=== PATIENT | female | born 1970 | race Caucasian/White ===

== ENCOUNTER → 2016-11-26 | Outpatient (CLI) | payer BC, OTHER ==
--- NOTE | 2016-11-26 16:49 | US ---
EXAMINATION TYPE: US pelvic complete DATE OF EXAM: 11/26/2016 COMPARISON: NONE CLINICAL HISTORY: N92.6 Irregular Menstrual Cycle. Pt states recent abnormal menses, bleeding continu ously for 3 weeks TECHNIQUE: Transabdominal (TA) Date of LMP: 10/18/2016, bled for 3 weeks EXAM MEASUREMENTS: Uterus: 10.7 x 4.7 x 8.1 cm Endometrial Stripe: Right Horn= 1.2 cm, Left Horn= 1.7 cm Right Ovary: 2.6 x 1.3 x 2.2 cm Left Ovary: 4.2 x 3.3 x 2.7 cm 1. Uterus: Anteverted Heterogeneous with two probable fibroids posterior 1)= 1.0 x 1.2 x 1.0 cm 2) = 1.1 x 1.0 x 0.8 cm 2. Endometrium: Right Horn appeared wnl, Left Horn appeared abnormally thickened and heterogeneous 3. Right Ovary: wnl 4. Left Ovary: Probable hemorrhagic cyst= 2.4 x 2.0 x 1.8 cm 5. Bilateral Adnexa: wnl 6. Posterior cul-de-sac: wnl IMPRESSION: There is complex endometrial thickening. Follow-up is recommended. Endometrium measures u p to 3 cm. No definite solid adnexal mass seen.
== END | disposition home or self-care (01) ==
LOC: RADUSWWP 16:13
PROVIDERS: ATTEND Family Medicine
DX: N85.00 Endometrial hyperplasia, unspecified (principal)
CPT/HCPCS: 76856

== ENCOUNTER 2017-11-15 13:04 | Emergency (ER) | payer BC ==
[2017-11-15 13:15] VITALS: BP 119/77; PULSE 79; RESP 18; TEMP 98.3
[2017-11-15] MEDS ORDERED: IBUPROFEN 600 MG TAB PO STA (13:23)
--- NOTE | 2017-11-15 13:36 | ED ---
Extremity Problem HPI - General Chief complaint: Extremity Problem,Nontraumatic Stated complaint: lt leg swelling Time Seen by Provider: 11/15/17 13:18 Source: patient, RN notes reviewed Mode of arrival: ambulatory Limitations: no limitations - History of Present Illness Initial comments: 47-year-old female presents emergency Department chief complaint of left leg pain, swelling. Patient states that she noted has some pain last week and was told that is most likely sciatica and was given steroids. She states she woke up this morning felt okay but throughout the day she's having worsening pain states that her leg is very firm to the touch and, swollen. She states it looks slightly discolored. She denies any history DVT, PE or any known vascular disease. Patient denies chest pain, shortness breath. She states her leg feels slightly tingly. - Related Data Previous Rx's Medication Instructions Recorded Apixaban [Eliquis] 0 mg PO DIRECTED #74 tablet 11/15/17 Allergies Allergy/AdvReac Type Severity Reaction Status Date / Time No Known Allergies Allergy Verified 11/15/17 13:26 Review of Systems ROS Statement: Those systems with pertinent positive or pertinent negative responses have been documented in the HPI. ROS Other: All systems not noted in ROS Statement are negative. Past Medical History Past Medical History: No Reported History History of Any Multi-Drug Resistant Organisms: None Reported Additional Past Surgical History / Comment(s): lasik eye surgery Past Psychological History: No Psychological Hx Reported Smoking Status: Never smoker Past Alcohol Use History: Occasional Past Drug Use History: None Reported General Exam Limitations: no limitations General appearance: alert, in no apparent distress Head exam: Present: atraumatic, normocephalic, normal inspection Neck exam: Present: normal inspection. Absent: tenderness, meningismus, lymphadenopathy Respiratory exam: Present: normal lung sounds bilaterally. Absent: respiratory distress, wheezes, rales, rhonchi, stridor Cardiovascular Exam: Present: regular rate, normal rhythm, normal heart sounds. Absent: systolic murmur, diastolic murmur, rubs, gallop, clicks Extremities exam: Present: other (Left leg is swollen, firm with palpation, tender with palpation pulses are equal bilaterally lower extremity patient has pain with range of motion of left lower extremity) Skin exam: Present: warm, dry, intact, normal color. Absent: rash Course Vital Signs 11/15/17 13:11 Temperature 98.3 F Pulse Rate 79 Respiratory 18 Rate Blood Pressure 119/77 O2 Sat by Pulse 98 Oximetry Medical Decision Making - Medical Decision Making 47-year-old female presented for left leg pain and swelling. She is found to have acute DVT. She was started on Eliquis in the emergency department. Patient denies chest pain or shortness of breath. I did expand the patient needs a follow-up with Dr. Naya Devries or Dr. Christie for workup for clotting disorders. Patient agrees this plan patient will follow-up PCP for recheck and continuation of medications. Disposition Clinical Impression: Acute deep vein thrombosis (DVT) of left lower extremity Disposition: HOME SELF-CARE Condition: Stable Instructions: Deep Vein Thrombosis (ED) Additional Instructions: Please return to the Emergency Department if symptoms worsen or any other concerns. Prescriptions: Apixaban [Eliquis] 0 mg PO DIRECTED #74 tablet Is patient prescribed a controlled substance at d/c from ED?: No Referrals: Helder Guzman DO [Primary Care Provider] - 1-2 days Michael Christie MD [STAFF PHYSICIAN] - 1-2 days Time of Disposition: 14:14
--- NOTE | 2017-11-15 13:55 | US ---
EXAMINATION TYPE: US venous doppler duplex LE LT DATE OF EXAM: 11/15/2017 1:24 PM COMPARISON: NONE CLINICAL HISTORY: 47-year-old female Pain. Swelling to left leg, no injury, tender to touch and canno t walk SIDE PERFORMED: left TECHNIQUE: The lower extremity deep venous system is examined utilizing real time linear array sonog capri with graded compression, doppler sonography and color-flow sonography. FINDINGS: VESSELS IMAGED: External Iliac Vein (EIV) Common Femoral Vein Deep Femoral Vein Greater Saphenous Vein * Femoral Vein Popliteal Vein Small Saphenous Vein * Calf Veins (* superficial vessels) Left Leg: Internal echoes from Left EIV extending down through calf veins, no color flow seen and ve ins were not compressible. IMPRESSION: Exam positive for extensive acute DVT extending from the external iliac vein down into the calf.
[2017-11-15] MEDS ORDERED: APIXABAN 5 MG TAB PO STA (14:11)
[2017-11-15] MEDS ORDERED: ACET/COD 300 MG/30 MG STARTER PACK 6 TAB BTL PO STA (14:14)
== END 2017-11-15 15:27 | disposition home or self-care (01) ==
LOC: EC 13:04
DX: I82.402 Acute embolism and thrombosis of unspecified deep veins of left lower extremity (principal)
CPT/HCPCS: 99283

== ENCOUNTER → 2017-11-26 | Outpatient (CLI) | payer BC ==
--- NOTE | 2017-11-26 09:05 | US ---
EXAMINATION TYPE: US venous doppler duplex LE RT DATE OF EXAM: 11/26/2017 8:45 AM COMPARISON: LEFT LEG DVT 11-15-17 CLINICAL HISTORY: R06.02 SOB. SIDE PERFORMED: Right TECHNIQUE: The lower extremity deep venous system is examined utilizing real time linear array sonog capri with graded compression, doppler sonography and color-flow sonography. VESSELS IMAGED: External Iliac Vein (EIV) Common Femoral Vein Deep Femoral Vein Greater Saphenous Vein * Femoral Vein Popliteal Vein Small Saphenous Vein * Proximal Calf Veins (* superficial vessels) Right Leg: Negative for DVT Grayscale, color doppler, spectral doppler imaging performed of the deep veins of the right lower ext remity. There is normal flow, compressibility, vascular waveforms. IMPRESSION: No ultrasound evidence for acute DVT in the right lower extremity on today's study.
--- NOTE | 2017-11-26 10:05 | CT ---
EXAMINATION TYPE: CT angio chest DATE OF EXAM: 11/26/2017 COMPARISON: None HISTORY: 47-year-old female Shortness of breath, swelling TECHNIQUE: Contiguous axial scanning of the chest performed with IV Contrast, patient injected with 1 00 ml mL of Isovue 370. Coronal/sagittal MIP reconstructions performed. CT DLP: 165.20 mGycm Automated exposure control for dose reduction was used. FINDINGS: Heart normal size without pericardial effusion. Aorta normal caliber with conventional arch vessel branching anatomy. No thoracic lymphadenopathy. Satisfactory opacification of the pulmonary canal system without evidence for pulmonary embolus. Mild diffuse bronchial wall thickening. No consolidation or pleural effusion. Visualized upper abdomen shows no gross abnormality. Bones: No osseous destructive process. IMPRESSION: NO EVIDENCE FOR PULMONARY EMBOLUS. MILD DIFFUSE BRONCHIAL WALL THICKENING MAY REPRESENT BRONCHITIS OR CHRONIC ASTHMA. OTHERWISE, NO ACUTE PULMONARY PROCESS.
== END | disposition home or self-care (01) ==
LOC: RADUSMAIN 08:06
PROVIDERS: ATTEND Internal Medicine Hematology & Oncology
DX: J98.09 Other diseases of bronchus, not elsewhere classified (principal); R22.41 Localized swelling, mass and lump, right lower limb
CPT/HCPCS: 93971; 71275; Q9967

== ENCOUNTER → 2018-02-03 | Outpatient (CLI) | payer BC ==
[2018-02-03 17:35] LABS: Basophils # (A) 0.1 k/uL (0-0.2); Basophils % (A) 1 %; Eosinophils # (A) 0.2 k/uL (0-0.7); Eosinophils % (A) 3 %; HCT 43.8 % (34.0-46.0); HGB 14.4 gm/dL (11.4-16.0); Lymphocytes # (A) 1.8 k/uL (1.0-4.8); Lymphocytes % (A) 27 %; MCH 31.5 pg (25.0-35.0); MCHC 32.7 g/dL (31.0-37.0); MCV 96.3 fL (80.0-100.0); Mean Platelet Volume 6.5; Monocytes # (A) 0.3 k/uL (0-1.0); Monocytes % (A) 4 %; Neutrophils # (A) 4.3 k/uL (1.3-7.7); Neutrophils % (A) 64 %; Platelet Count 325 k/uL (150-450); RBC 4.55 m/uL (3.80-5.40); WBC 6.8 k/uL (3.8-10.6)
== END | disposition home or self-care (01) ==
LOC: LABPAT 17:21
PROVIDERS: ATTEND Obstetrics & Gynecology
DX: Z01.812 Encounter for preprocedural laboratory examination (principal)
CPT/HCPCS: 85025

== ENCOUNTER 2018-02-18 08:40 | Day surgery (SDC) | payer BC ==
[2018-02-15 15:52] VITALS: BMI 20.3
--- NOTE | 2018-02-18 07:55 | P.HPOB ---
History of Present Illness H&P Date: 02/18/18 Chief Complaint: menorrhagia and family planning 47 year old presents for D&C hysteroscopy and endometrial ablation with NovaSure and laparoscopic tubal ligation. She had a DVT a few months ago and can no longer take the control pill. She is currently on a regimen of eliquis but has not taken this in several days. Review of Systems All systems: negative Constitutional: Denies chills, Denies fever Eyes: denies blurred vision, denies pain Ears, nose, mouth and throat: Denies headache, Denies sore throat Cardiovascular: Denies chest pain, Denies shortness of breath Respiratory: Denies cough Gastrointestinal: Denies abdominal pain, Denies diarrhea, Denies nausea, Denies vomiting Genitourinary: Denies dysuria, Denies hematuria Musculoskeletal: Denies myalgias Integumentary: Denies pruritus, Denies rash Neurological: Denies numbness, Denies weakness Psychiatric: Denies anxiety, Denies depression Endocrine: Denies fatigue, Denies weight change Past Medical History Past Medical History: Deep Vein Thrombosis (DVT) Additional Past Medical History / Comment(s): DVT-LT LEG-11/15/17 History of Any Multi-Drug Resistant Organisms: None Reported Additional Past Surgical History / Comment(s): lasik eye surgery Past Anesthesia/Blood Transfusion Reactions: No Reported Reaction Additional Past Anesthesia/Blood Transfusion Reaction / Comment(s): NO PRIOR SX PROCEDURES Smoking Status: Former smoker - Past Family History Father Family Medical History: Cancer Medications and Allergies Home Medications Medication Instructions Recorded Confirmed Type Apixaban [Eliquis] 5 mg PO BID 02/15/18 02/15/18 History Escitalopram [Lexapro] 5 mg PO DAILY 02/15/18 02/15/18 History Allergies Allergy/AdvReac Type Severity Reaction Status Date / Time No Known Allergies Allergy Verified 02/15/18 15:46 Exam Osteopathic Statement: *. No significant issues noted on an osteopathic structural exam other than those noted in the History and Physical/Consult. Heart: RRR Lungs: CTAB Abdomen: soft, nontender Extremetie: neg matti's Assessment and Plan (1) Menorrhagia Status: Acute Code(s): N92.0 - EXCESSIVE AND FREQUENT MENSTRUATION WITH REGULAR CYCLE SNOMED Code(s): 763576033 (2) Family planning Status: Acute Code(s): Z30.09 - ENCOUNTER FOR OTH GENERAL CNSL AND ADVICE ON CONTRACEPTION SNOMED Code(s): 965231004 Plan: D&C hysteroscopy and endometrial ablation with Novasure and laparoscopic tubal ligation
[~2018-02-18 08:40] MED LIST: DEXAMETHASONE SOD PHOSPHATE 10 MG/ML 1 ML VIAL IV ONE; LACTATED RINGERS 1,000 ML IV SCH; MORPHINE SULFATE 2 MG/ML SYRINGE IV PRN; ONDANSETRON 4 MG/2 ML VIAL IVP ONE; Pre Op ABX Message 1 EACH MISC MISCELLANE ONE
[2018-02-18] MEDS ORDERED: MIDAZOLAM 2 MG/2 ML VIAL ONE (09:59)
[2018-02-18] MEDS ORDERED: HYDROmorphone (PF) 1 MG/ML ONE (09:59)
[2018-02-18] MEDS ORDERED: NEOSTIGMINE 1 MG/ML 10 ML VIAL ONE (09:59)
[2018-02-18] MEDS ORDERED: fentaNYL (PF) 50 MCG/ML 2 ML AMP ONE (09:59)
[2018-02-18] MEDS ORDERED: LIDOCAINE 1% INJ 10MG/ML (20 ML MDV) ONE (09:59)
[2018-02-18] MEDS ORDERED: KETOROLAC 30 MG/ML 1 ML VIAL ONE (09:59)
[2018-02-18] MEDS ORDERED: ROCURONIUM BROMIDE 10 MG/ML 10 ML VIAL IV ONE (09:59)
[2018-02-18] MEDS ORDERED: GLYCOPYRROLATE 0.2 MG/ML 2 ML VIAL ONE (09:59)
[2018-02-18] MEDS ORDERED: PROPOFOL 10 MG/ML 20 ML VIAL IV ONE (09:59)
[2018-02-18] MEDS ORDERED: BUPIVACAIN-EPI 0.25%-1:200,000 30 ML VIAL SQ ONE ×2 (10:25)
[2018-02-18] MEDS ORDERED: LACTATED RINGERS 1,000 ML IV ONE (10:52)
[2018-02-18 11:11] VITALS: TEMP 97
--- NOTE | 2018-02-18 11:19 | P.OP ---
Date of Procedure: 02/18/18 Preoperative Diagnosis: 1. MEnorrhagia 2. FAmily Planning Postoperative Diagnosis: same Procedure(s) Performed: D&C, hysteroscopy, endometrial ablation with NovaSure, laparoscopic tubal ligation Anesthesia: DILLON Surgeon: Whtiney Garcia Estimated Blood Loss (ml): 15 Pathology: other (Endometrial curettings) Condition: stable Disposition: PACU Operative Findings: Cavity length of 6.5, width 4.6, time of ablation 44 seconds at 164 [address]. Adequate ablation after NovaSure. Description of Procedure: Patient is taken the operating room where general anesthesia was obtained without difficulty. She was prepped and draped in normal sterile fashion dorsal lithotomy position, legs placed in the Soto stirrups. Bladder was drained of all urine. Weighted speculum placed in the vagina and the anterior lip the cervix was grasped with serial tooth tenaculum. The uterus sounded to 10 cm and the cervix under 3.5 cm making the cavity length 6.5 cm. The cervix was dilated to #8 Hegar dilator. Hysteroscopy was then performed. Both ostia were visualized and there was a smooth contour of the uterus. Sharp curet was then gently used to obtain endometrial curettings. The NovaSure was introduced into the uterus with a cavity length of 6.5 cm, width 4.6 cm. after cavity assessment was passed, the time of ablation was 44 seconds at [address]. Hysteroscopy was again performed and adequate ablation was noted. The kroner manipulator was placed. Attention was then turned to the abdomen and gloves were changed. A 10 mm infraumbilical incision was made the scalpel and 10 mm optical trocar was placed under direct visualization. A 5 mm suprapubic Incision was made and a 5 mm optical trocar was placed under direct visualization. Survey of the pelvis revealed normal uterus tubes and ovaries. The left fallopian tube was grasped with a Kleppinger and fulgurated 2-3 cm on this side in the ampullar portion. The right fallopian tube was grasped with a Kleppinger and fulgurated 2-3 cm in the ampullar portion. All instruments were then removed from the abdomen and vagina. The 10 mm infraumbilical incision was closed with 0 Vicryl and the fascial layer and then 4-0 Vicryl in a subcuticular fashion. The 5 mm incision was closed with 4-0 Vicryl in a subcuticular fashion. Patient tolerated procedure well, sponge and instrument counts correct 2 and she was taken to recovery room in stable condition.
[2018-02-18 11:20] VITALS: RESP 16
[2018-02-18] MEDS ORDERED: ACETAMINOPHEN IV (For NPO) 1,000 MG/100 ML VIAL IVPB ONE (11:40)
[2018-02-18] MEDS: HYDROmorphone 0.5 MG/0.5 ML SYRINGE IVP PRN ×2 (11:46→11:51)
[2018-02-18 12:52] VITALS: BP 113/75; PULSE 76
== END 2018-02-18 13:17 | disposition home or self-care (01) ==
LOC: OR 08:40
PROVIDERS: ATTEND Obstetrics & Gynecology
DX: Z30.2 Encounter for sterilization (principal); N92.0 Excessive and frequent menstruation with regular cycle; Z86.718 Personal history of other venous thrombosis and embolism; Z79.01 Long term (current) use of anticoagulants; Z79.899 Other long term (current) drug therapy
CPT/HCPCS: 81025; 88305; 58563; 58670; J2250; J1100; J2710; J2405; J2001; J3010; J1885; J1170 ×2; J0131; J2704

== ENCOUNTER → 2018-05-21 | Outpatient (CLI) | payer BC ==
--- NOTE | 2018-05-21 10:21 | US ---
EXAMINATION TYPE: US venous doppler duplex LE LT DATE OF EXAM: 05/21/2018 10:06 AM COMPARISON: NONE CLINICAL HISTORY: Left Lower Ext, I82.492 DVT. SIDE PERFORMED: left TECHNIQUE: The lower extremity deep venous system is examined utilizing real time linear array sonog capri with graded compression, doppler sonography and color-flow sonography. VESSELS IMAGED: External Iliac Vein (EIV) Common Femoral Vein Deep Femoral Vein Greater Saphenous Vein * Femoral Vein Popliteal Vein Small Saphenous Vein * Proximal Calf Veins (* superficial vessels) Left Leg: Negative for DVT IMPRESSION: 1. No diagnostic evidence of DVT as visualized.
== END | disposition home or self-care (01) ==
LOC: RADUSWWP 09:44
PROVIDERS: ATTEND Internal Medicine Hematology & Oncology
DX: I82.492 Acute embolism and thrombosis of other specified deep vein of left lower extremity (principal)

== ENCOUNTER → 2018-08-18 | Outpatient (CLI) | payer BC ==
--- NOTE | 2018-08-18 14:16 | US ---
EXAMINATION TYPE: US venous doppler duplex LE BI DATE OF EXAM: 08/18/2018 2:05 PM COMPARISON: Left lower extremity venous ultrasound May 21, 2018 CLINICAL HISTORY: M79.662 Pain L leg, M79.661 Pain R leg. Left leg pain. No redness. Not on blood t hinners. Hx of DVT in left leg Nov 2017 SIDE PERFORMED: Bilateral TECHNIQUE: The lower extremity deep venous system is examined utilizing real time linear array sonog capri with graded compression, doppler sonography and color-flow sonography. VESSELS IMAGED: External Iliac Vein (EIV) Common Femoral Vein Deep Femoral Vein Greater Saphenous Vein * Femoral Vein Popliteal Vein Small Saphenous Vein * Proximal Calf Veins (* superficial vessels) Right Leg: Negative for DVT Left Leg: Negative for DVT Grayscale, color doppler, spectral doppler imaging performed of the deep veins of the bilateral lower extremities. There is normal flow, compressibility, vascular waveforms. IMPRESSION: No ultrasound evidence for acute DVT in either lower extremity on current study.
== END | disposition home or self-care (01) ==
LOC: RADUSWWP 13:25
PROVIDERS: ATTEND Internal Medicine Hematology & Oncology
DX: M79.662 Pain in left lower leg (principal); M79.661 Pain in right lower leg; R22.42 Localized swelling, mass and lump, left lower limb; R22.41 Localized swelling, mass and lump, right lower limb
CPT/HCPCS: 93970

== ENCOUNTER → 2018-11-11 | Outpatient (CLI) | payer BC ==
--- NOTE | 2018-11-16 09:52 | MM ---
Reason for exam: screening (asymptomatic). Last mammogram was performed 1 year and 11 months ago. History: Took hormonal contraceptives for 8 years beginning at age 22. Physical Findings: A clinical breast exam by your physician is recommended on an annual basis and results should be correlated with mammographic findings. MG Screening Mammo w CAD Bilateral CC and MLO view(s) were taken. Prior study comparison: December 05, 2016, bilateral MG screening mammo w CAD. November 26, 2015, bilateral MG 3d screening mammo w/cad. The breast tissue is heterogeneously dense. This may lower the sensitivity of mammography. No significant changes when compared with prior studies. ASSESSMENT: Negative, BI-RAD 1 RECOMMENDATION: Routine screening mammogram of both breasts in 1 year.
== END | disposition home or self-care (01) ==
LOC: RADMAMWWP 17:02
PROVIDERS: ATTEND Family Medicine
DX: Z12.31 Encounter for screening mammogram for malignant neoplasm of breast (principal)
CPT/HCPCS: 77067

== ENCOUNTER → 2020-02-14 | Outpatient (CLI) | payer BC ==
--- NOTE | 2020-02-15 13:34 | MM ---
Reason for exam: screening (asymptomatic). Last mammogram was performed 1 year and 3 months ago. History: Took hormonal contraceptives for 8 years beginning at age 22. Physical Findings: A clinical breast exam by your physician is recommended on an annual basis and results should be correlated with mammographic findings. MG Screening Mammo w CAD Bilateral CC and MLO view(s) were taken. Prior study comparison: November 11, 2018, bilateral MG screening mammo w CAD. December 05, 2016, bilateral MG screening mammo w CAD. The breast tissue is heterogeneously dense. This may lower the sensitivity of mammography. Superior right MLO asymmetric density at a middle depth is unchanged compared to 11/26/15. No significant changes when compared with prior studies. ASSESSMENT: Benign, BI-RAD 2 RECOMMENDATION: Routine screening mammogram of both breasts in 1 year.
== END | disposition home or self-care (01) ==
LOC: RADMAMWWP 15:50
PROVIDERS: ATTEND Obstetrics & Gynecology
DX: Z12.31 Encounter for screening mammogram for malignant neoplasm of breast (principal)
CPT/HCPCS: 77067

== ENCOUNTER → 2020-07-05 | Outpatient (CLI) | payer BC ==
--- NOTE | 2020-07-06 08:27 | CT ---
EXAMINATION TYPE: CT angio neck DATE OF EXAM: 07/05/2020 COMPARISON: None HISTORY: Right sided neck swelling after being struck by softball x5 days ago. CT DLP: 338.5 mGycm CONTRAST: CTA cervical carotids is performed and with IV Contrast, patient injected with 65ml mL of Isovue 370. Contrast CTA of the cervical carotids was performed 3-D reconstruction imaging obtained at a separate workstation. Right carotid system: Mild plaque is seen of the right common carotid artery. There is no significan t plaque also noted at the carotid bulb. No hemodynamically significant stenosis seen. ECA is patent. Right vertebral artery appears unremarkable. Left carotid system: Mild plaque is seen of the left common carotid artery. There is no significant plaque also noted at the carotid bulb. No hemodynamically significant stenosis seen. ECA is patent. Left vertebral artery appears unremarkable. IMPRESSION: No hemodynamically significant stenosis appreciated.
== END | disposition home or self-care (01) ==
LOC: RADCTMAIN 17:42
PROVIDERS: ATTEND Family Medicine
DX: R22.1 Localized swelling, mass and lump, neck (principal)
CPT/HCPCS: 70498; Q9967

== ENCOUNTER → 2020-12-24 | Outpatient (CLI) | payer BC ==
--- NOTE | 2020-12-24 13:33 | XR ---
EXAMINATION TYPE: XR knee complete LT DATE OF EXAM: 12/24/2020 COMPARISON: None HISTORY: Left knee pain TECHNIQUE: 3 view left knee FINDINGS: No joint effusion is evident. No acute fracture or dislocation is evident. Follow up study can be performed 7-10 days from acute trauma for continued pain. IMPRESSION: 1. Normal 3 view left knee
== END | disposition home or self-care (01) ==
LOC: RADXRYALE 11:44
PROVIDERS: ATTEND Family Medicine
DX: M25.562 Pain in left knee (principal)

== ENCOUNTER → 2021-10-10 | Outpatient (CLI) | payer BC ==
--- NOTE | 2021-10-22 08:06 | MM ---
Reason for Exam: Screening (asymptomatic). Last mammogram was performed 1 year(s) and 7 month(s) ago. Patient History: Menarche at age 15. First Full-Term at age 21. Hormonal Contraceptives for 8 years from age 22 until age 30. Risk Values: Shirley 5 year model risk: 0.7%. NCI Lifetime model risk: 6.7%. Prior Study Comparison: 12/05/2016 Bilateral Screening Mammogram, [facility]. 11/11/2018 Bilateral Screening Mammogram, [facility]. 02/14/2020 Bilateral Screening Mammogram, [facility]. Tissue Density: The breast tissue is heterogeneously dense. This may lower the sensitivity of mammography. Findings: Analyzed By CAD. Mass density upper outer left breast on CC. Additional views are recommended. No suspicious calcifications noted within either breast. Overall Assessment: Incomplete: need additional imaging evaluation, BI-RAD 0 Management: Diagnostic Breast Ultrasound of the left breast. A clinical breast exam by your physician is recommended on an annual basis and results should be correlated with mammographic findings. Electronically signed and approved by: Mark Page M.D. Radiologis
== END | disposition home or self-care (01) ==
LOC: RADMAMWWP 16:35
PROVIDERS: ATTEND Family Medicine
DX: Z12.31 Encounter for screening mammogram for malignant neoplasm of breast (principal)
CPT/HCPCS: 77067

== ENCOUNTER → 2021-10-24 | Outpatient (CLI) | payer BC ==
--- NOTE | 2021-10-24 10:56 | USB ---
Reason for Exam: Additional evaluation requested from abnormal screening. Patient History: Menarche at age 15. First Full-Term at age 21. Hormonal Contraceptives for 8 years from age 22 until age 30. Risk Values: Shirley 5 year model risk: 0.7%. NCI Lifetime model risk: 6.6%. Technique: Method: Targeted. Patient Position: Supine. Prior Study Comparison: 11/11/2018 Bilateral Screening Mammogram, [facility]. 02/14/2020 Bilateral Screening Mammogram, [facility]. 10/10/2021 Bilateral MG screening mammo w CAD, [facility]. Findings: The upper outer quadrant of the left breast was scanned. Targeted ultrasound left breast upper outer quadrant 12:00 to 4:00 show scattered dense tissues. No solid or cystic lesion. A 6 month follow-up can reassess the mammographic appearance, likely superimposition shadow. Overall Assessment: Probably benign, BI-RAD 3 Management: Diagnostic Mammogram of the left breast in 6 months. 1. To reassess the mammographic asymmetry in the upper-outer quadrant. Negative ultrasound suggesting superimposition shadow. 2. Patient should continue monthly self breast exam. 3. This exam should not preclude additional follow-up of suspicious palpable abnormalities. Electronically signed and approved by: Brenda Wynn M.D. Radiologist
== END | disposition home or self-care (01) ==
LOC: RADUSWWP 10:07
PROVIDERS: ATTEND Family Medicine
DX: R92.8 Other abnormal and inconclusive findings on diagnostic imaging of breast (principal)

== ENCOUNTER 2022-02-21 12:18 | Emergency (ER) | payer BC ==
[2022-02-21 12:32] VITALS: TEMP 97.7
--- NOTE | 2022-02-21 13:46 | US ---
EXAMINATION TYPE: US venous doppler duplex LE LT DATE OF EXAM: 02/21/2022 1:31 PM COMPARISON: [facility] bilateral study 2018 CLINICAL HISTORY: swelling hx dvt. Left leg DVT 2018. Not on blood thinners. Redness and swelling. SIDE PERFORMED: Left TECHNIQUE: The lower extremity deep venous system is examined utilizing real time linear array sonog capri with graded compression, doppler sonography and color-flow sonography. VESSELS IMAGED: Common Femoral Vein Deep Femoral Vein Greater Saphenous Vein * Femoral Vein Popliteal Vein Small Saphenous Vein * Proximal Calf Veins (* superficial vessels) Left Leg: Positive for DVT in EIV and CFV. Rouleaux flow visualized in left leg. Slow flow visuali zed from CFV to Proximal calf veins. Vascular flow difference seen with contralateral CFV. Grayscale, color doppler, spectral doppler imaging performed of the deep veins of the left lower extr emity. IMPRESSION: Proximal Acute DVT in the visualized portion of the left external iliac vein extends int o the common femoral vein. There is patency with color but slowed flow in the superficial femoral vei n and popliteal vein.
[2022-02-21] MEDS ORDERED: APIXABAN 5 MG TAB PO STA (15:03)
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
[2022-02-21 15:37] VITALS: BP 132/78; PULSE 70; RESP 18
== END 2022-02-21 15:37 | disposition home or self-care (01) ==
LOC: EC 12:18
DX: I82.402 Acute embolism and thrombosis of unspecified deep veins of left lower extremity (principal); Z79.01 Long term (current) use of anticoagulants
CPT/HCPCS: 99283

== ENCOUNTER → 2022-04-08 | Outpatient (CLI) | payer BC ==
--- NOTE | 2022-04-08 14:15 | CT ---
EXAMINATION TYPE: CT angio chest DATE OF EXAM: 04/08/2022 COMPARISON: 11/26/2017 HISTORY: current DVT, hx of PE CT DLP: 247.2 mGycm CONTRAST: CT chest with contrast and 3D reconstruction with MIP imaging is performed with IV Contrast, patient injected with 63cc mL of Isovue 370. Contrast-enhanced CT of the chest was performed through the course of the pulmonary arteries with demi g and mediastinal window settings submitted. 3D reconstruction with MIP imaging was also performed. PULMONARY ARTERIES: The pulmonary arteries and their major tributaries are patent. I do not see ji dence for sizable filling defect to suggest pulmonary embolic process. LUNGS: The lungs are clear and free of infiltrate. No evidence for atelectasis. No pulmonary nodule or mass is detected. No pleural effusion. MEDIASTINUM: Thoracic aorta is of normal caliber,however, evaluation is limited given timing of the contrast bolus. If there is concern for thoracic aortic pathology consider SULEMA. Correlate clinicall y . The heart is not enlarged. No evidence for mediastinal mass. No mediastinal lymph nodes greater than 1cm. HILAR STRUCTURES: No evidence for mass. No hilar lymph nodes greater than 1 cm. UPPER ABDOMEN: No significant abnormality is seen. IMPRESSION: 1. No evidence for Pulmonary embolism at this time.
--- NOTE | 2022-04-08 16:03 | US ---
EXAMINATION TYPE: US venous doppler duplex LE RT DATE OF EXAM: 04/08/2022 12:41 PM COMPARISON: NONE CLINICAL HISTORY: 51-year-old female I82.5Z9 DVT. Hx of Dvt in left leg on blood thinners. SIDE PERFORMED: Right TECHNIQUE: The lower extremity deep venous system is examined utilizing real time linear array sonog capri with graded compression, doppler sonography and color-flow sonography. FINDINGS: VESSELS IMAGED: Common Femoral Vein Deep Femoral Vein Greater Saphenous Vein * Femoral Vein Popliteal Vein Small Saphenous Vein * Proximal Calf Veins (* superficial vessels) Right Leg: Negative for DVT IMPRESSION: No evidence for DVT within the right lower extremity imaged from the groin to the upper calf.
== END | disposition home or self-care (01) ==
LOC: RADUSWWP 12:04
PROVIDERS: ATTEND Internal Medicine Hematology & Oncology
DX: I82.5Z1 Chronic embolism and thrombosis of unspecified deep veins of right distal lower extremity (principal); R06.02 Shortness of breath; Z86.711 Personal history of pulmonary embolism
CPT/HCPCS: 93971; 71275; Q9967

== ENCOUNTER → 2022-07-10 | Outpatient (CLI) | payer BC ==
--- NOTE | 2022-07-10 17:16 | US ---
EXAMINATION TYPE: US venous doppler duplex LE LT DATE OF EXAM: 07/10/2022 4:36 PM COMPARISON: US 02/21/2022 CLINICAL INDICATION: Female, 51 years old with history of I82.492 DVT; F/U DVT left leg SIDE PERFORMED: Left TECHNIQUE: The lower extremity deep venous system is examined utilizing real time linear array sonog capri with graded compression, doppler sonography and color-flow sonography. VESSELS IMAGED: Common Femoral Vein Deep Femoral Vein Greater Saphenous Vein * Femoral Vein Popliteal Vein Small Saphenous Vein * Proximal Calf Veins (* superficial vessels) Findings: Grayscale, color doppler, spectral doppler imaging performed of the deep veins of the lower extremities. There is normal flow, compressibility, vascular waveforms. IMPRESSION: LEFT LOWER EXTREMITY: Negative for DVT; prior DVT resolved.
== END | disposition home or self-care (01) ==
LOC: RADUSWWP 16:18
PROVIDERS: ATTEND Internal Medicine Hematology & Oncology
DX: I82.492 Acute embolism and thrombosis of other specified deep vein of left lower extremity (principal)